=== PATIENT | male | born 1965 | race Two or more races ===

== ENCOUNTER 2022-11-20 19:57 | Inpatient (IN) | payer OTHER ==
[2022-11-20 21:08] VITALS: BMI 25.2
[2022-11-20] MEDS ORDERED: MAG HYDROX/AL HYDROX/SIMETH 30 ML UNIT-DOSE CUP PO PRN (21:45)
[2022-11-20] MEDS ORDERED: LOPERAMIDE HCL 2 MG CAPSULE PO PRN (21:45)
[2022-11-20] MEDS ORDERED: IBUPROFEN 400 MG TABLET (FP) PO PRN (21:45)
[2022-11-20] MEDS ORDERED: guaiFENesin 600 MG TABLET.ER (FP) PO PRN (21:45)
[2022-11-20] MEDS ORDERED: MAGNESIUM HYDROX 2400MG/30ML ORAL SUSPENSION 30 ML CUP PO PRN (21:45)
[2022-11-20] MEDS ORDERED: POLYETHYLENE GLYCOL (HEALTHYLAX) 3350 17 GM PACKET PO PRN (21:45)
[2022-11-20] MEDS ORDERED: BISMUTH SUBSALICYLATE 524 MG/30 ML PO PRN (21:45)
[2022-11-20] MEDS ORDERED: DICYCLOMINE HCL 10 MG CAPSULE PO PRN (21:45)
[2022-11-20] MEDS ORDERED: NICOTINE POLACRILEX 2 MG GUM BUC PRN (21:45)
[2022-11-20] MEDS ORDERED: ONDANSETRON *ODT* 4 MG TABLET SL PRN (21:45)
[2022-11-20] MEDS ORDERED: NICOTINE 10 MG CARTRIDGE (INHALER) IH PRN (21:45)
[2022-11-20] MEDS ORDERED: hydrOXYzine PAMOATE 25 MG CAPSULE (FP) PO PRN (21:45)
[2022-11-20] MEDS ORDERED: BENZONATATE 200 MG CAPSULE PO PRN (21:45)
[2022-11-20] MEDS ORDERED: BENZOCAINE/MENTHOL (CHLORASEPTIC ) LOZENGE MM PRN (21:45)
[2022-11-20] MEDS ORDERED: P-EPHED 60MG/TRIPROLIDI 2.5MG TABLET PO PRN (21:45)
[2022-11-20] MEDS: THIAMINE HCL 100 MG TABLET (FP) PO SCH (23:41)
[2022-11-20] MEDS: MELATONIN 5 MG TABLETS PO PRN (23:41)
[2022-11-20] MEDS: IBUPROFEN 600 MG TABLET (FP) PO PRN (23:44)
[2022-11-21] MEDS: PRENATAL VITAMINS W/ FOLIC ACID TABLET (FP) PO SCH (10:23)
[2022-11-21] MEDS: IBUPROFEN 600 MG TABLET (FP) PO PRN (10:24)
[2022-11-21] MEDS ORDERED: diazePAM 5 MG TABLET PO PRN (10:33)
[2022-11-21] MEDS: diazePAM 5 MG TABLET PO SCH ×3 (11:02→22:36)
[2022-11-21 12:14] LABS: HEMOGLOBIN 13.6 GM/dL (11.7-16.9); MCH 30.8 pg (25.7-33.7); MCHC 34.8 g/dl (32.0-35.9); MEAN CELL VOLUME 88.6 fl (80-96); PLATELET COUNT 113 10^3/uL (134-434); RBC 4.41 M/mm3 (4.00-5.60); WHITE BLOOD COUNT 6.1 K/mm3 (4.0-10.0)
[2022-11-21 12:20] LABS: ALBUMIN 3.5 g/dl (3.4-5.0); CALCIUM 9.4 mg/dL (8.5-10.1)
[2022-11-21 12:21] LABS: BLOOD UREA NITROGEN 11.8 mg/dL (7-18); CREATININE 0.9 mg/dL (0.55-1.3)
[2022-11-21 12:25] LABS: BILIRUBIN,TOTAL 1.1 mg/dL (0.2-1); TOT PROT 7.1 g/dl (6.4-8.2)
[2022-11-21] MEDS ORDERED: cloNIDine HCL 0.1 MG TABLET PO PRN (16:02)
[2022-11-21] MEDS: ACETAMINOPHEN 325 MG TABLET (FP) PO PRN (17:25)
[2022-11-21] MEDS: THIAMINE HCL 100 MG TABLET (FP) PO SCH (22:36)
[2022-11-21] MEDS: MELATONIN 5 MG TABLETS PO PRN (22:36)
[2022-11-22] MEDS: diazePAM 5 MG TABLET PO SCH ×4 (05:54→22:22)
[2022-11-22] MEDS: IBUPROFEN 600 MG TABLET (FP) PO PRN (09:03)
[2022-11-22] MEDS: PRENATAL VITAMINS W/ FOLIC ACID TABLET (FP) PO SCH (10:24)
[2022-11-22] MEDS: ACETAMINOPHEN 325 MG TABLET (FP) PO PRN (10:26)
[2022-11-22] MEDS: THIAMINE HCL 100 MG TABLET (FP) PO SCH (22:22)
[2022-11-22] MEDS: MELATONIN 5 MG TABLETS PO PRN (22:22)
[2022-11-23] MEDS: diazePAM 5 MG TABLET PO SCH ×3 (06:10→22:17)
[2022-11-23] MEDS: ACETAMINOPHEN 325 MG TABLET (FP) PO PRN (06:13)
[2022-11-23] MEDS: PRENATAL VITAMINS W/ FOLIC ACID TABLET (FP) PO SCH (09:56)
[2022-11-23] MEDS: MELATONIN 5 MG TABLETS PO PRN (22:17)
[2022-11-23] MEDS: THIAMINE HCL 100 MG TABLET (FP) PO SCH (22:17)
[2022-11-23] MEDS: IBUPROFEN 600 MG TABLET (FP) PO PRN (22:18)
[2022-11-24] MEDS: diazePAM 5 MG TABLET PO SCH ×2 (05:33→18:22)
[2022-11-24] MEDS: PRENATAL VITAMINS W/ FOLIC ACID TABLET (FP) PO SCH (10:33)
[2022-11-24] MEDS: THIAMINE HCL 100 MG TABLET (FP) PO SCH (21:48)
[2022-11-24] MEDS: MELATONIN 5 MG TABLETS PO PRN (21:48)
[2022-11-25] MEDS ORDERED: diazePAM 5 MG TABLET PO ONE (06:00)
[2022-11-25 09:06] VITALS: BP 112/63; PULSE 81; RESP 18; TEMP 98.1
[2022-11-25] MEDS: PRENATAL VITAMINS W/ FOLIC ACID TABLET (FP) PO SCH (09:42)
== END 2022-11-25 11:08 | disposition home or self-care (01) | DRG 775 ==
LOC: YASAS 19:57 → Y3N 22:42
PROVIDERS: ADMIT Allergy & Immunology; ATTEND Surgery
PROC: HZ2ZZZZ Detoxification Services for Substance Abuse Treatment (ICD-10-PCS; principal; 2022-11-20)
DX: F10.230 Alcohol dependence with withdrawal, uncomplicated (principal); F17.210 Nicotine dependence, cigarettes, uncomplicated; I10 Essential (primary) hypertension; M54.50 Low back pain, unspecified; G89.29 Other chronic pain; Z28.310 Unvaccinated for COVID-19; Z28.9 Immunization not carried out for unspecified reason; Z56.0 Unemployment, unspecified; Z59.00 Homelessness unspecified
CPT/HCPCS: 36415; 80053; 85027; 86780; 87811; C9803-CS; U0003; U0005